=== PATIENT | female | born 1950 | race Caucasian/White ===

== ENCOUNTER 2022-01-23 07:14 | Day surgery (SDC) | payer MEDICARE, BC, OTHER ==
[2022-01-22 13:01] VITALS: BMI 30.9
[2022-01-23] MEDS ORDERED: PROPOFOL 20 ML ONE (09:35)
== END 2022-01-23 10:35 | disposition home or self-care (01) ==
LOC: CSHSDC 07:14
PROVIDERS: ATTEND Otolaryngology Otolaryngic Allergy
PROC: 0CJS8ZZ Inspection of Larynx, Via Natural or Artificial Opening Endoscopic (ICD-10-PCS; principal; 2022-01-23)
DX: G47.33 Obstructive sleep apnea (adult) (pediatric) (principal); I10 Essential (primary) hypertension; E03.9 Hypothyroidism, unspecified; F32.A Depression, unspecified; F41.9 Anxiety disorder, unspecified; J45.909 Unspecified asthma, uncomplicated; Z86.73 Personal history of transient ischemic attack (TIA), and cerebral infarction without residual deficits; Z88.5 Allergy status to narcotic agent; Z88.6 Allergy status to analgesic agent; Z88.2 Allergy status to sulfonamides; Z88.8 Allergy status to other drugs, medicaments and biological substances; Z79.82 Long term (current) use of aspirin; Z79.899 Other long term (current) drug therapy
CPT/HCPCS: J2704

== ENCOUNTER 2022-03-21 11:02 | Outpatient (CLI) | payer MEDICARE, BC, OTHER ==
[2022-03-21 13:03] LABS: Hemoglobin 13.4 g/dL (12.0-15.5); Mean Corpuscular HGB CONC 31.5 g/dL (32.0-36.0); Mean Corpuscular Hemoglobin 28.9 pg (27.0-33.0); Mean Platelet Volume 11.2 fl (7.4-10.4); Platelet Count 272 10x3/uL (150-450); Red Blood Cell (RBC) Count 4.63 10x6/uL (3.90-5.03); White Blood Cell (WBC) Count 6.9 10x3/uL (3.5-10.5)
[2022-03-21 13:21] LABS: Anion Gap 15 mmol/L (10-20); BUN (Urea Nitrogen) 18 mg/dL (9.8-20.1); Calc. Creatinine Clearance 0 mL/min (70-130); Calcium 9.3 mg/dL (7.8-10.44); Carbon Dioxide 29 mmol/L (23-31); Chloride 102 mmol/L (98-107); Estimated GFR 84; Glucose 64 mg/dL (83-110); Sodium 142 mmol/L (136-145)
== END 2022-03-21 11:03 | disposition home or self-care (01) ==
LOC: CSHLAB 11:02
PROVIDERS: ATTEND Otolaryngology Otolaryngic Allergy
DX: Z01.818 Encounter for other preprocedural examination (principal)
CPT/HCPCS: 80048; 85027; 93005; 93010

== ENCOUNTER 2022-03-27 05:55 | Day surgery (SDC) | payer MEDICARE, BC, OTHER ==
[2022-03-22 08:55] VITALS: BMI 30.6
[2022-03-27] MEDS ORDERED: Dexamethasone 20 MG/5 ML VIAL ONE (07:50)
[2022-03-27] MEDS ORDERED: Midazolam HCl 2 mg/2 ml Vial ONE (07:50)
[2022-03-27] MEDS ORDERED: Rocuronium Bromide 10 MG/ML (10ML VIAL) ONE (07:50)
[2022-03-27] MEDS ORDERED: Ondansetron PF 4 MG/2 ML Vial ONE (07:50)
[2022-03-27] MEDS ORDERED: Lidocaine 1% PF 5 ML VIAL ONE (07:50)
[2022-03-27] MEDS ORDERED: Fentanyl 250 MCG/5 ML VIAL ONE (07:50)
[2022-03-27] MEDS ORDERED: PROPOFOL 20 ML ONE (07:50)
[2022-03-27] MEDS ORDERED: EPINEPHrine 1 MG/ML AMP ONE (08:02)
[2022-03-27] MEDS ORDERED: CEFAZOLIN 2 GM VIAL ONE (08:07)
[2022-03-27] MEDS ORDERED: PHENYLEPHRINE-NS 100 MCG/ML 10 ML SYRINGE ONE (08:41)
[2022-03-27] MEDS ORDERED: Glycopyrrolate 0.2 MG/ML 5 ML SYRINGE ONE (08:41)
== END 2022-03-27 12:05 | disposition home or self-care (01) ==
LOC: CSHSDC 05:55
PROVIDERS: ATTEND Otolaryngology Otolaryngic Allergy
PROC: 0JH60BZ Insertion of Single Array Stimulator Generator into Chest Subcutaneous Tissue and Fascia, Open Approach (ICD-10-PCS; principal; 2022-03-27)
PROC: 00HE0MZ Insertion of Neurostimulator Lead into Cranial Nerve, Open Approach (ICD-10-PCS; 2022-03-27)
DX: G47.33 Obstructive sleep apnea (adult) (pediatric) (principal); I10 Essential (primary) hypertension; E78.5 Hyperlipidemia, unspecified; J45.909 Unspecified asthma, uncomplicated; F41.9 Anxiety disorder, unspecified; E03.9 Hypothyroidism, unspecified; Z79.899 Other long term (current) drug therapy; Z88.8 Allergy status to other drugs, medicaments and biological substances; Z86.73 Personal history of transient ischemic attack (TIA), and cerebral infarction without residual deficits
CPT/HCPCS: 64582; 70360; C1820; C1898; C1787; J0171; J1100; J2250; J2405; J2704; J3010

== ENCOUNTER 2022-05-10 05:37 | Day surgery (SDC) | payer MEDICARE, BC, OTHER ==
[2022-05-09 09:24] VITALS: BMI 30.9
[2022-05-10] MEDS ORDERED: Rocuronium Bromide 10 MG/ML (10ML VIAL) ONE (06:35)
[2022-05-10] MEDS ORDERED: Midazolam HCl 2 mg/2 ml Vial ONE (06:35)
[2022-05-10] MEDS ORDERED: PROPOFOL 20 ML ONE (06:35)
[2022-05-10] MEDS ORDERED: Lidocaine 2% PF 5 ML VIAL ONE (06:35)
[2022-05-10] MEDS ORDERED: Lidocaine 1% PF 5 ML VIAL ONE (06:35)
[2022-05-10] MEDS ORDERED: Ondansetron PF 4 MG/2 ML Vial ONE (06:35)
[2022-05-10] MEDS ORDERED: Fentanyl 100 MCG/2 ML VIAL ONE (06:36)
[2022-05-10] MEDS ORDERED: Lidocaine 1% w/Epinephrine 1:100K 30 ML VIAL ONE (06:48)
[2022-05-10] MEDS ORDERED: Neomycin-Polymyxin 1 ML AMP ONE (06:57)
[2022-05-10] MEDS ORDERED: Clindamycin/D5W 900 mg/50 ml Premix Bag ONE (07:19)
[2022-05-10] MEDS ORDERED: ePHEDrine Sulfate 50 MG/10 ML VIAL ONE (07:26)
[2022-05-10] MEDS ORDERED: Glycopyrrolate 0.2 MG/ML 5 ML SYRINGE ONE (07:27)
[2022-05-10] MEDS ORDERED: PHENYLEPHRINE-NS 100 MCG/ML 10 ML SYRINGE ONE (07:29)
== END 2022-05-10 09:30 | disposition home or self-care (01) ==
LOC: CSHSDC 05:37
PROVIDERS: ATTEND Otolaryngology Otolaryngic Allergy
PROC: 00P00MZ Removal of Neurostimulator Lead from Brain, Open Approach (ICD-10-PCS; principal; 2022-05-10)
PROC: 0JPT0MZ Removal of Stimulator Generator from Trunk Subcutaneous Tissue and Fascia, Open Approach (ICD-10-PCS; 2022-05-10)
DX: T85.121A Displacement of implanted electronic neurostimulator of peripheral nerve electrode (lead), initial encounter (principal); S21.101A Unspecified open wound of right front wall of thorax without penetration into thoracic cavity, initial encounter; I10 Essential (primary) hypertension; J45.909 Unspecified asthma, uncomplicated; F41.9 Anxiety disorder, unspecified; G47.33 Obstructive sleep apnea (adult) (pediatric); Z79.899 Other long term (current) drug therapy; Z88.5 Allergy status to narcotic agent; Y83.1 Surgical operation with implant of artificial internal device as the cause of abnormal reaction of the patient, or of later complication, without mention of misadventure at the time of the procedure
CPT/HCPCS: 87070; 87205; J2001; J2250; J2405; J2704; J3010; J3490

== ENCOUNTER 2022-05-29 09:05 | Day surgery (SDC) | payer MEDICARE, BC, OTHER ==
[2022-05-28 11:06] VITALS: BMI 30.6
[2022-05-29] MEDS ORDERED: Lidocaine 1% PF 5 ML VIAL ONE (10:39)
[2022-05-29] MEDS ORDERED: PROPOFOL 20 ML ONE (10:39)
[2022-05-29] MEDS ORDERED: Fentanyl 100 MCG/2 ML VIAL ONE (10:39)
[2022-05-29] MEDS ORDERED: Ondansetron PF 4 MG/2 ML Vial ONE (10:39)
[2022-05-29] MEDS ORDERED: Midazolam HCl 2 mg/2 ml Vial ONE (10:39)
[2022-05-29] MEDS ORDERED: Dexamethasone 20 MG/5 ML VIAL ONE (10:39)
[2022-05-29] MEDS ORDERED: Rocuronium Bromide 10 MG/ML (10ML VIAL) ONE (10:39)
[2022-05-29] MEDS ORDERED: Neomycin-Polymyxin 1 ML AMP ONE (10:45)
[2022-05-29] MEDS ORDERED: Glycopyrrolate 0.2 MG/ML 5 ML SYRINGE ONE (11:25)
[2022-05-29] MEDS ORDERED: Lidocaine 1% w/Epinephrine 1:100K 20 ML VIAL ONE (11:28)
[2022-05-29] MEDS ORDERED: CEFAZOLIN 1 GM VIAL ONE (11:50)
[2022-05-29] MEDS ORDERED: Meperidine HCl/PF 25 MG/ML VIAL ONE (12:11)
[2022-05-29] MEDS ORDERED: traMADol HCl 50 MG TAB ONE (13:34)
== END 2022-05-29 13:50 | disposition home or self-care (01) ==
LOC: CSHSDC 09:05
PROVIDERS: ATTEND Otolaryngology Otolaryngic Allergy
PROC: 00P Central Nervous System and Cranial Nerves, Removal (ICD-10-PCS; principal; 2022-05-29)
DX: T85.121A Displacement of implanted electronic neurostimulator of peripheral nerve electrode (lead), initial encounter (principal); S21.101A Unspecified open wound of right front wall of thorax without penetration into thoracic cavity, initial encounter; I10 Essential (primary) hypertension; J45.909 Unspecified asthma, uncomplicated; F41.9 Anxiety disorder, unspecified; F32.A Depression, unspecified; Z79.899 Other long term (current) drug therapy; Z79.82 Long term (current) use of aspirin; Z88.8 Allergy status to other drugs, medicaments and biological substances; Y83.1 Surgical operation with implant of artificial internal device as the cause of abnormal reaction of the patient, or of later complication, without mention of misadventure at the time of the procedure; X58.XXXA Exposure to other specified factors, initial encounter
CPT/HCPCS: J0690; J1100; J2175; J2250; J2405; J2704; J3010